=== PATIENT | male | born 1980 | race Caucasian/White ===

== ENCOUNTER → 2017-06-27 15:47 | Outpatient (CLI) | payer OTHER, SELFPAY ==
[2017-06-27 16:34] LABS: AST(SGOT) 19 U/L (15-37); Alanine Aminotransfer ALT/SGPT 28 U/L (16-61); Alkaline Phosphatase 74 U/L (45-117); Bilirubin, Direct 0.14 mg/dL (0.00-0.30); Cholesterol 181 mg/dL (200); Globulin 3.6 g/dL (2.2-4.2); High Density Lipoprotein 47 mg/dL; Protein, Total 7.6 g/dL (6.4-8.2); Triglycerides 195 mg/dL; Very Low Density Lipoprotein 39 mg/dL (5-40)
== END ==
PROVIDERS: Visit Provider Internal Medicine Cardiovascular Disease
DX: R07.9 Chest pain, unspecified (principal)
CPT/HCPCS: 36415; 80061; 80076

== ENCOUNTER 2021-07-07 06:52 | Inpatient (IN) | payer OTHER, SELFPAY ==
[2021-07-07] VITALS (13 sets, daily range): BP systolic 106–157; BP diastolic 61–89; PULSE 62–98; RESP 15–22; TEMP 37.1–39.4; O2SAT 94–97; BMI 25.4; BMI 25.3
--- NOTE | 2021-07-07 07:03 | EKG12_ITS ---
Test Reason : CELLULITIS Blood Pressure : / mmHG Vent. Rate : 086 BPM Atrial Rate : 086 BPM P-R Int : 134 ms QRS Dur : 090 ms QT Int : 332 ms P-R-T Axes : 056 073 058 degrees QTc Int : 397 ms Normal sinus rhythm Normal ECG Confirmed by GLO CHAVEZ, JOSE ([id number]), video editor JACQUELYN MÉNDEZ ([id number]) on 07/10/2021 1:10:08 PM Referred By: Confirmed By:JOSE CODY MD
--- NOTE | 2021-07-07 07:03 | CT_ITS ---
STUDY: CT ABDOMEN AND PELVIS WITH CONTRAST REASON FOR EXAM: Male, 40 years old. abdominal wall infection RADIATION DOSAGE (If Supplied By Facility): CTDIvol = ( 10.90 ) mGy, DLP = ( 633.11 ) mGycm TECHNIQUE: Transaxial images were obtained from the dome of the diaphragm to the symphysis pubis without oral contrast. 80 CC ISOVUE 300 was administered. Sagittal and coronal images were reconstructed. Individualized dose optimization techniques were used for this CT. COMPARISON: None. FINDINGS: The visualized lung bases demonstrate mild fibrosis in the posterior basilar segment of the right lower lobe. At its inferior aspect there is a nodular focus 0.6 cm transverse dimension. Mild fibrosis posterior basilar segment left lower lobe. The visualized portions of the heart are within normal limits. Normal liver. Normal gallbladder and extrahepatic biliary system. Normal spleen. Normal pancreas. Normal bilateral adrenal glands. Normal right kidney. Normal left kidney. Normal visualized stomach. Normal small intestine. Moderate stool throughout the colon consistent with fecal stasis. The appendix is visualized and appears normal. Normal abdominal aorta. Normal inferior vena cava. Normal retroperitoneum. Normal urinary bladder. There is an umbilical hernia measuring 1 cm transverse by 1 cm AP. Extending inferiorly to the right of the umbilicus there is a moderate degree of skin thickening and subcutaneous edema consistent with abdominal wall infection. There is no evidence of discrete abscess or fluid collection within the anterior abdominal wall. Normal osseous structures. CT/Abdomen/Pelvis W IV Cont ONLY IMPRESSION: Skin thickening and subcutaneous edema right lower anterior abdominal wall consistent with abdominal wall infection. There is no evidence of discrete abscess or fluid collection. Mild bibasilar fibrosis with nodular focus inferiorly on the right 0.6 cm transverse. Fecal stasis. Electronically Signed: Shawn Merlos MD, ASHLEE at 8:16 EDT ,
--- NOTE | 2021-07-07 07:06 | EX.ED.DYSGE1 ---
HPI History of Present Illness Chief Complaint: Cellulitis Informant: patient and spouse/S.O. Narrative Narrative: 40-year-old male presenting to the emergency department with cellulitis of the abdomen. Patient states that the day after returning home from a trip to [place] he noticed a small area of redness on his lower right abdominal wall. Thinking he may have had a bite he did not think much about it until it started to worsen and become painful. He notes that on he went to [facility] urgent [facility] and was started on Keflex 500 mg twice daily and was also given a steroid shot. It continues to worsen and be increasingly painful and is now swollen. He denies any significant medical problems. He has not had a fever until today. [facility] Medical History (Updated 07/07/21 @ 08:[address] Kranthi Wood DO) Arthralgia Arthritis History of petechial rash Thrombocytopenia URI (upper respiratory infection) Home Medications cephalexin 500 mg BID 07/07/21 [History Last Taken Unknown] Allergy/AdvReac Type Severity Reaction Status Date / Time oxycodone [From OxyContin] AdvReac unknown Verified 06/27/17 14:57 Family History Father Myocardial infarction Uncle Myocardial infarction Grandfather CAD (coronary artery disease) CABG, valve surgery Grandmother CAD (coronary artery disease) valve replacement Diabetes Surgical History Hx of fall Social History Smoking Status: Never smoker alcohol intake: current alcohol intake frequency: a few times a week Alcohol type: beer substance use type: does not use ROS ROS ED Constitutional Constitutional ED: Reports chills and fever(s); Denies weight loss Eyes Eyes: Denies change in vision or diplopia ENT ENT ED: Denies ear pain, rhinorrhea or sore throat Cardiovascular Cardiovascular: Denies chest pain, orthopnea, palpitations or racing heartbeat Respiratory/Chest Respiratory/Chest: Denies cough, dyspnea or orthopnea Gastrointestinal Gastrointestinal: Reports abdominal pain; Denies diarrhea, nausea or vomiting Genitourinary Genitourinary ED: Denies dysuria, hematuria or urinary frequency Musculoskeletal Musculoskeletal: Denies arthralgias or myalgias Integumentary Reports rash; Denies abscess Neurologic Neurologic: Denies headache(s) or weakness Psychiatric Psychiatric: Denies anxiety, depression, suicidal ideation or suicidal thoughts Endocrine Endocrinology: Denies polydipsia, polyphagia or polyuria Allergic/Immunologic Allergic/Immunologic ED: Denies mouth swelling, tongue swelling or urticaria EXAM Physical Exam Const Vital Signs: 07/07/21 06:53 07/07/21 06:56 07/07/21 07:26 Temperature 100.7 F H 100.7 F H 101 F H Temperature Source Temporal Temporal Oral Pulse Rate 62 62 Respiratory Rate 15 19 H Blood Pressure 157/89 H 157/86 H Blood Pressure Mean 111 109 Pulse Ox 97 94 Oxygen Delivery Method Room Air Room Air 07/07/21 07:29 07/07/21 08:17 Temperature 99.7 F H Temperature Source Oral Pulse Rate 87 79 Respiratory Rate 22 H 19 H Blood Pressure 125/79 H 128/78 H Blood Pressure Mean 94 94 Pulse Ox 95 97 Oxygen Delivery Method Room Air Room Air Positive well nourished and well developed General Appearance ED: well developed HEENT Reports normocephalic, head/scalp atraumatic, TM's clear and moist mucous membranes Negative for trauma Tympanic Membrane ED: Yes TM's clear Eyes PERRL and EOMs intact bilaterally Neck no lymphadenopathy, supple and no JVD Resp normal respiratory effort and clear to auscultation bilaterally Cardio regular rate, regular rhythm and no murmurs GI non-tender GI Narrative: Please see skin exam Auscultation: normoactive bowel sounds Palpation: soft Back/Spine no CVA tenderness and normal ROM Extremity normal to inspection General Extremety ED: Negative for edema General Extremity: Negative for edema Neuro oriented x3 and CN's II-XII intact bilaterally Sensorium / Orientation: alert Motor Exam: strength 5/5 throughout Psych mental status grossly normal Mood & Affect: Negative for depressed or tearful Skin no wounds Skin Narrative: On the right lower abdominal wall is a 25 cm x 8 cm elliptical area of swelling and erythema. Tender to palpation. MDM MDM MDM Narrative Medical decision making narrative: Oral temperature taken by this physician is 101. Basic blood work is reassuring white count 10.1 lactic acid is normal at 0.8. Blood cultures were obtained and the patient received Zosyn and vancomycin. CT of the abdomen pelvis does not demonstrate any drainable abscess or intra-abdominal pathology. It is consistent with cellulitis. Lab Data Attestation: I reviewed the patient's lab results. Labs: Laboratory Results - last 24 hr 07/07/21 07/07/21 07/07/21 07:00 07:00 07:00 WBC 10.1 RBC 5.08 Hgb 15.6 Hct 45.5 MCV 89.6 MCH 30.7 MCHC 34.3 RDW Std Deviation 42.4 RDW Coeff of Viv 12.9 Plt Count 149 L MPV 11.8 Immature Gran % (Auto) 0.700 Neut % (Auto) 77.7 H Lymph % (Auto) 10.3 L [place] % (Auto) 10.7 H Eos % (Auto) 0.4 Baso % (Auto) 0.2 Absolute Neuts (auto) 7.8 H Absolute Lymphs (auto) 1.04 Nucleated RBC % 0 PT 13.5 INR 1.1 APTT 28.9 Sodium 137 Potassium 3.7 Chloride 105 Carbon Dioxide 27.0 Anion Gap 5 BUN 22 H Creatinine 1.39 H Estim Creat Clear Calc 82.96 Est GFR (MDRD) Af Amer 73 Est GFR (MDRD) Non-Af 60 BUN/Creatinine Ratio 15.8 Glucose 99 Lactic Acid Calcium 8.8 Total Bilirubin 0.50 AST 34 ALT 66 H Alkaline Phosphatase 73 Total Protein 7.4 Albumin 3.8 Globulin 3.6 Albumin/Globulin Ratio 1.1 07/07/21 07:00 WBC RBC Hgb Hct MCV MCH MCHC RDW Std Deviation RDW Coeff of Viv Plt Count MPV Immature Gran % (Auto) Neut % (Auto) Lymph % (Auto) [place] % (Auto) Eos % (Auto) Baso % (Auto) Absolute Neuts (auto) Absolute Lymphs (auto) Nucleated RBC % PT INR APTT Sodium Potassium Chloride Carbon Dioxide Anion Gap BUN Creatinine Estim Creat Clear Calc Est GFR (MDRD) Af Amer Est GFR (MDRD) Non-Af BUN/Creatinine Ratio Glucose Lactic Acid 0.8 Calcium Total Bilirubin AST ALT Alkaline Phosphatase Total Protein Albumin Globulin Albumin/Globulin Ratio Radiography Diagnostic Testing: Clinical Impression(s) from Imaging Studies Abdomen/Pelvis CT 07/07/21 07:03 IMPRESSION: Skin thickening and subcutaneous edema right lower anterior abdominal wall consistent with abdominal wall infection. There is no evidence of discrete abscess or fluid collection. Mild bibasilar fibrosis with nodular focus inferiorly on the right 0.6 cm transverse. Fecal stasis. Electronically Signed: Shawn Merlos MD, ASHLEE at 8:16 EDT , EKG Initial EKG: Attestation: I personally reviewed and interpreted this EKG as follows: Comments: Normal sinus rhythm with a ventricular rate of 86 bpm Discharge Plan Dx/Rx/DC Orders Clinical Impression: Abdominal wall cellulitis, Sepsis, Thrombocytopenia Disposition Disposition: Acute Care Hospital [facility]
--- NOTE | 2021-07-07 07:12 | NURSING ---
NO OLD EKGS
[2021-07-07] MEDS: 0.9% Normal Saline 1,000 ML 999 ML IV (07:22)
[2021-07-07 07:23] LABS: Absolute Lymphocyte Count 1.04 X10^3/uL (0.83-4.51); Absolute Neutrophil Count 7.8 X10^3/uL (2.0-7.7); Basophil# 0.02 X10^3/uL; Basophil% 0.2 % (0-1); Eosinophil# 0.04 X10^3/uL; Eosinophils% 0.4 % (0-5); Hematocrit 45.5 % (40-54); Hemoglobin 15.6 g/dL (13.0-16.5); Lymphocyte # 1.04 X10^3/ul (0.83-4.51); Lymphocyte % 10.3 % (19-41); Mean Corp Hgb Conc 34.3 g/dL (32-36); Mean Corpuscular Hgb 30.7 pg (27.0-32.0); Mean Corpuscular Volume 89.6 fL (80-94); Mean Platelet Vol. 11.8 fl (6.2-12.0); Monocyte# 1.08 X10^3/uL; Monocyte% 10.7 % (0-10); NRBC Flagged by Analyzer 0 % (0-5); Neutrophil # 7.82 X10^3/uL (2.7-7.7); Neutrophil % 77.7 % (47-70); Platelet Count 149 K/mm3 (150-450); RBC Distribution Width CV 12.9 % (11.6-14.6); RBC Distribution Width SD 42.4 fl (35.1-43.9); Red Blood Count 5.08 M/mm3 (4.6-6.2); White Blood Count 10.1 K/mm3 (4.4-11.0)
[2021-07-07] MEDS: Acetaminophen 500 MG Tablet 1000 MG PO ×2 (07:23→14:20)
[2021-07-07] MEDS: Ondansetron 4 MG/2 ML Vial IV (07:23)
[2021-07-07] MEDS: Morphine 4 MG/ML Syringe IV (07:24)
[2021-07-07 07:36] LABS: ALB/GLOB Ratio 1.1 RATIO (0.9-2.4); AST(SGOT) 34 U/L (15-37); Alanine Aminotransfer ALT/SGPT 66 U/L (16-61); Albumin, Serum 3.8 g/dL (3.2-5.0); Alkaline Phosphatase 73 U/L (45-117); Anion Gap 5 (5-15); BUN 22 mg/dL (7-18); BUN/Creat Ratio 15.8 RATIO (10-20); Calcium,Total 8.8 mg/dL (8.5-10.1); Chloride 105 mmol/L (98-107); Creatinine, Serum 1.39 mg/dL (0.70-1.30); EST Glomerular Filtration Rate 60 mL/min (>60); Est Glom Filt Rate - Afr Amer 73 mL/min (>60); Estimated Creatinine Clearance 82.96 ml/min; Globulin 3.6 g/dL (2.2-4.2); Glucose 99 mg/dL (74-106); Potassium 3.7 mmol/L (3.5-5.1); Protein, Total 7.4 g/dL (6.4-8.2); Sodium Level 137 mmol/L (136-145)
[2021-07-07 07:45] LABS: Lactic Acid 0.8 mmol/L (0.4-1.9)
[2021-07-07 07:54] LABS: International Normalized Ratio 1.1; Prothrombin Time (Protime)PT. 13.5 SECONDS (11.7-14.9)
[2021-07-07 07:55] LABS: Partial Thromboplast Time 28.9 Seconds (24.1-36.2)
--- NOTE | 2021-07-07 07:58 | ED.RN ---
abx infusion was paused while pt was in CT due to CT with iv contrast. pt is back in room, abx and iv fluids infusing.
--- NOTE | 2021-07-07 08:41 | HP.PCM.HOS_ITS ---
HPI - General General Date of Admission: 07/07/21 Date of Service: 07/07/21 Chief Complaint: Abdominal wall redness- 6 days HPI Narrative PENELOPE JOHNSON, is a 40 M who presents above. Patient noted some rash over his anterior abdominal wall 6 days ago. He denied any insect bites or any cuts. He had gone fishing 3 days prior. He denied going into the water. He denied any fever or chills. He was seen in the urgent care, 3 days ago and started on Keflex. He was told to come to the emergency room and the redness/rash got worse. The redness is worse and he decided to come to the emergency room. His vitals in the ED showed blood pressure 112/61, heart rate 69, respiratory 22, temperature with 99.2F. He was 100.7 earlier on. CBCD was unremarkable except for platelet of 149, neutrophilia, BUN is 22, creatinine is 1.39. CT of the abdomen and pelvis shows skin thickening and subcutaneous edema of the right lower anterior abdominal wall. No discrete abscess or fluid collection. [facility] Medical History Arthralgia Arthritis History of petechial rash Thrombocytopenia URI (upper respiratory infection) Home Medications cephalexin 500 mg BID 07/07/21 [History Last Taken Unknown] Allergy/AdvReac Type Severity Reaction Status Date / Time oxycodone [From OxyContin] AdvReac unknown Verified 06/27/17 14:57 Family History Father Myocardial infarction Uncle Myocardial infarction Grandfather CAD (coronary artery disease) CABG, valve surgery Grandmother CAD (coronary artery disease) valve replacement Diabetes Surgical History (Updated 07/07/21 @ 09:[address] Keke Davis MD) History of arthroplasty of left shoulder Hx of fall Social History Smoking Status: Never smoker alcohol intake: current alcohol intake frequency: a few times a week Alcohol type: beer substance use type: does not use ROS ROS Narrative Constitutional: Reports: Malaise, Weakness, Fatigue. Denies: Anorexia, Chills, Fever, Night Sweats, Weight Change Eyes: Denies: Blurred vision, Cataracts, Conjunctivae Inflammation, Pain, Redness, Vision Change HEENT: Denies: Difficulty Hearing, Difficulty Swallowing, Head Aches, Hearing Changes, Sinus Congestion, Sinus Drainage Cardiovascular: Denies: Chest Pain, Orthopnea, Palpitations Respiratory: Denies: Cough, Shortness of breath at rest, Sputum production Gastrointestinal: Denies: Abdominal Pain, Nausea, Vomiting Genitourinary: Denies: Dysuria Musculoskeletal: Denies: Joint Pain, Joint stiffness, Joint swelling, Joint Tenderness Skin: See HPI Neurological: Denies: Numbness, Tingling, Focal weakness Vital Signs Vital Signs Vital Signs: 07/07/21 06:53 07/07/21 06:56 07/07/21 07:26 Temperature 100.7 F H 100.7 F H 101 F H Temperature Source Temporal Temporal Oral Pulse Rate 62 62 Respiratory Rate 15 19 H Blood Pressure 157/89 H 157/86 H Blood Pressure Mean 111 109 Pulse Ox 97 94 Oxygen Delivery Method Room Air Room Air 07/07/21 07:29 07/07/21 08:17 Temperature 99.7 F H Temperature Source Oral Pulse Rate 87 79 Respiratory Rate 22 H 19 H Blood Pressure 125/79 H 128/78 H Blood Pressure Mean 94 94 Pulse Ox 95 97 Oxygen Delivery Method Room Air Room Air Weight Weight: 89.9 kg Body Mass Index (BMI) 25.4 Physical Exam Narrative Physical exam: General: Alert, Oriented x3, Cooperative, No apparent distress HEENT: Atraumatic Oral: Moist Mucosa Neck: Supple Lungs: Clear to auscultation Cardiovascular: HS I+II, regular, no murmurs Abdomen: Lower anterior abdominal wall erythema with differential warmth and skin thickening, seem more on the right and lower aspect of the anterior abdominal wall, bowel Sounds Present, Soft, Non Tender Extremities: No edema Skin: No rashes, No breakdown Neurological: Grossly intact Psych/Mental Status: Appropriate Results Lab / Micro Data Result Diagrams: 07/07/21 07:00 07/07/21 07:00 Labs: Laboratory Results - last 24 hr 07/07/21 07:00: WBC 10.1, RBC 5.08, Hgb 15.6, Hct 45.5, MCV 89.6, MCH 30.7, MCHC 34.3, RDW Std Deviation 42.4, RDW Coeff of Viv 12.9, Plt Count 149 L, MPV 11.8, Immature Gran % (Auto) 0.700, Neut % (Auto) 77.7 H, Lymph % (Auto) 10.3 L, [place] % (Auto) 10.7 H, Eos % (Auto) 0.4, Baso % (Auto) 0.2, Absolute Neuts (auto) 7.8 H, Absolute Lymphs (auto) 1.04, Nucleated RBC % 0 07/07/21 07:00: PT 13.5, INR 1.1, APTT 28.9 07/07/21 07:00: Sodium 137, Potassium 3.7, Chloride 105, Carbon Dioxide 27.0, Anion Gap 5, BUN 22 H, Creatinine 1.39 H, Estim Creat Clear Calc 82.96, Est GFR (MDRD) Af Amer 73, Est GFR (MDRD) Non-Af 60, BUN/Creatinine Ratio 15.8, Glucose 99, Calcium 8.8, Total Bilirubin 0.50, AST 34, ALT 66 H, Alkaline Phosphatase 73 , Total Protein 7.4, Albumin 3.8, Globulin 3.6, Albumin/Globulin Ratio 1.1 07/07/21 07:00: Lactic Acid 0.8 Radiology Impression Abdomen/Pelvis CT 07/07/21 07:03 IMPRESSION: Skin thickening and subcutaneous edema right lower anterior abdominal wall consistent with abdominal wall infection. There is no evidence of discrete abscess or fluid collection. Mild bibasilar fibrosis with nodular focus inferiorly on the right 0.6 cm transverse. Fecal stasis. Electronically Signed: Shawn Merlos MD, ASHLEE at 8:16 EDT Reading Location ID and State: [facility] / [place] Tel , Service support , Assessment & Plan Assessment/Plan (1) Abdominal wall cellulitis: (2) History of arthroplasty of left shoulder: PLAN: 1. Acute abdominal wall cellulitis, unclear etiology Patient was started on Keflex a few days ago Started on IV vancomycin and Zosyn; continue same Continue to monitor 2. Chronic thrombocytopenia, platelet is 149, Continue to monitor 3. LRARY versus CKD, unknown previous Cr/GFR We will continue IV fluids, repeat blood work in a.m. 4. DVT prophylaxis?low risk, SCDs Charges/Coding Visit Charges Inpatient E&M: 61293 Init Hosp L3
--- NOTE | 2021-07-07 08:41 | NURSING ---
MED SURG NUAMAH CELLULITIS, SEPSIS
--- NOTE | 2021-07-07 09:08 | NURSING ---
ROOM [facility]
[2021-07-07] MEDS: 0.9% Normal Saline 1,000 ML 100 ML IV ×2 (10:53→21:16)
--- NOTE | 2021-07-07 11:00 | CASEMGMT ---
GEORGIE [place] Assessment: Face to Face with pt for initial transition planning/care coordination assessment. RN FELIX introduced self and role at [facility], pt voices understanding and consents to assessment. Pt is A/O x4 and answers all questions appropriately at this time. Pt lying in bedin no distress. Care providers, pharmacy, and demographics verified/updated. Admitting Dx: cellulitis PCP:Pt denies. Provided pt with local healthcare directory. Specialists:Pt denies. Preferred Pharmacy: [facility] Retail Insurance: UMR Prescription Benefit: yes LW/HPOA: Pt denies having a LW/DPOA and denies need for info regarding AD. LNOK: Ale Olmos, Living Arrangements: Pt lives with and 3 kids in a bilevel home with multiple steps to enter with rails. Pt states he is I in ADL's and denies concerns at home. Transportation: Pt drives self and denies concerns with transportation. DME/HHC/SNF: Pt denies use of AD or having any. Denies previous HHC or SNF stays. Pt states no concerns with going home at time of dc. Pt states no further concerns/needs. CM to follow. Advised pt to ask CM if any further question/concerns/needs arise, voices understanding. Pt Goal: Home Plan: Home
[2021-07-07 16:00] LABS: Bacteria 0 SEEN /hpf (None Seen); Mucous, Urine 0 SEEN /hpf (<or=2+); Squamous Epithelial Cells - UA 0 SEEN /hpf (0-5)
[2021-07-07 16:07] LABS: Color, Urine Yellow (Yellow); Glucose, Dipstick Normal (Normal); Ketone-Dipstick Negative (Negative); Leukocyte Esterase-Dipstick 25 /ul (Negative); Nitrite-Dipstick Negative (Negative); Occult Blood-Urine 250 /ul (Negative); Protein-Dipstick 100 mg/dl (Negative); Specific Gravity, Urine 1.015 (1.002-1.030); Urine Bilirubin Dipstick Negative (Negative); Urine Clarity Cloudy (Clear); Urine Urobilinogen 1 mg/dl (Normal)
[2021-07-07 16:16] LABS: Red Blood Cells-Urine 10-25 SEEN /hpf (0-5); White Blood Cells 50-100 SEEN /hpf (0-5)
--- NOTE | 2021-07-07 18:41 | PCM.RX.CS ---
Consult Pharmacy has been consulted to manage selected antiobiotic: Vancomycin Type of Consult: New start Suspected Infection: Skin/Soft tissue Labs: Sodium 137 mmol/L (136-145) 07/07/21 07:00 Potassium 3.7 mmol/L (3.5-5.1) 07/07/21 07:00 Chloride 105 mmol/L (98-107) 07/07/21 07:00 Carbon Dioxide 27.0 mmol/L (21.0-32.0) 07/07/21 07:00 Anion Gap 5 (5-15) 07/07/21 07:00 BUN 22 mg/dL (7-18) H 07/07/21 07:00 Creatinine 1.39 mg/dL (0.70-1.30) H 07/07/21 07:00 Est GFR (MDRD) Af Amer 73 mL/min (>60) 07/07/21 07:00 Est GFR (MDRD) Non-Af 60 mL/min (>60) 07/07/21 07:00 BUN/Creatinine Ratio 15.8 RATIO (10-20) 07/07/21 07:00 Glucose 99 mg/dL (74-106) 07/07/21 07:00 Goal Trough: 15-20 mcg/mL Pharmacy Plan for Drug Dosing: NEW START IV VANCOMYCIN Consulting Physician: Dr. Davis Indication: Abdominal Cellulitis Goal Trough: 15-20 SrCr: 1.39 CrCl: 83 Comments: pt received a 2000mg x1 dose in the ER on 07/07/21 at 0834 Vancomcyin Dose: based on pts age, weight, and renal function, recommend an initial dose of 750mg q8h starting 07/07/21 at 1700. Trough before the 4th dose. --Note: Dose was calculated using Clinical Pharmacology. Estimated trough of 15.78 Pending Level: 07/08/21 at 0830 Pharmacy Service will continue to monitor and adjust dosing as required. Follow-Up Labs: Trough Vancomycin - 07/08/21 at 0830
[2021-07-07] MEDS: Ibuprofen 600 MG Tablet PO (19:59)
[2021-07-08 02:30] VITALS: BP 123/76; PULSE 59; RESP 18; TEMP 36.8; O2SAT 97
[2021-07-08 06:20] LABS: Absolute Lymphocyte Count 1.25 X10^3/uL (0.83-4.51); Absolute Neutrophil Count 6.4 X10^3/uL (2.0-7.7); Basophil# 0.03 X10^3/uL; Basophil% 0.3 % (0-1); Eosinophil# 0.03 X10^3/uL; Eosinophils% 0.3 % (0-5); Hematocrit 39.3 % (40-54); Hemoglobin 12.9 g/dL (13.0-16.5); Lymphocyte # 1.25 X10^3/ul (0.83-4.51); Lymphocyte % 14.2 % (19-41); Mean Corp Hgb Conc 32.8 g/dL (32-36); Mean Corpuscular Hgb 29.8 pg (27.0-32.0); Mean Corpuscular Volume 90.8 fL (80-94); Mean Platelet Vol. 12.2 fl (6.2-12.0); Monocyte# 1.07 X10^3/uL; Monocyte% 12.1 % (0-10); NRBC Flagged by Analyzer 0 % (0-5); Neutrophil # 6.37 X10^3/uL (2.7-7.7); Neutrophil % 72.3 % (47-70); Platelet Count 119 K/mm3 (150-450); RBC Distribution Width SD 43.5 fl (35.1-43.9); Red Blood Count 4.33 M/mm3 (4.6-6.2); White Blood Count 8.8 K/mm3 (4.4-11.0)
[2021-07-08 06:54] LABS: ALB/GLOB Ratio 0.8 RATIO (0.9-2.4); AST(SGOT) 42 U/L (15-37); Alanine Aminotransfer ALT/SGPT 77 U/L (16-61); Albumin, Serum 2.7 g/dL (3.2-5.0); Alkaline Phosphatase 64 U/L (45-117); Anion Gap 5 (5-15); BUN 16 mg/dL (7-18); BUN/Creat Ratio 12.2 RATIO (10-20); Calcium,Total 7.9 mg/dL (8.5-10.1); Chloride 108 mmol/L (98-107); Creatinine, Serum 1.31 mg/dL (0.70-1.30); EST Glomerular Filtration Rate 65 mL/min (>60); Est Glom Filt Rate - Afr Amer 78 mL/min (>60); Estimated Creatinine Clearance 88.02 ml/min; Globulin 3.4 g/dL (2.2-4.2); Glucose 96 mg/dL (74-106); Potassium 3.6 mmol/L (3.5-5.1); Protein, Total 6.1 g/dL (6.4-8.2); Sodium Level 138 mmol/L (136-145)
--- NOTE | 2021-07-08 07:13 | PN.HOSP_ITS ---
Subjective Subjective Follow-up on abdominal wall cellulitis: Patient was seen and examined. He has been having fevers overnight; T-max is 102.9F. He stated that he feels fairly improved. No acute events overnight. Denies any diarrhea or nausea or vomiting. Blood cultures are still pending Objective Data Objective Data Vital Signs: Vital Signs Temp Pulse Resp BP Pulse Ox 98.2 F 59 L 18 123/76 H 97 07/08/21 02:30 07/08/21 02:30 07/08/21 02:30 07/08/21 02:30 07/08/21 02:30 Oxygen Delivery Method Room Air Weight: 89.5 kg Body Mass Index (BMI) 25.3 Intake & Output: Intake and Output for Last 24 Hours 07/06/21 07/07/21 07/08/21 23:59 23:59 23:59 Intake Total 3818.25 / 4618.25 1688.33 / 1688.33 Output Total 600 / 1000 1200 / 1200 Balance 3218.25 / 3618.25 488.33 / 488.33 Lab / Micro Data Result Diagrams: 07/08/21 05:14 07/08/21 05:14 Labs: Laboratory Results - last 24 hr 07/07/21 07:00: WBC 10.1, RBC 5.08, Hgb 15.6, Hct 45.5, MCV 89.6, MCH 30.7, MCHC 34.3, RDW Std Deviation 42.4, RDW Coeff of Viv 12.9, Plt Count 149 L, MPV 11.8, Immature Gran % (Auto) 0.700, Neut % (Auto) 77.7 H, Lymph % (Auto) 10.3 L, [place] % (Auto) 10.7 H, Eos % (Auto) 0.4, Baso % (Auto) 0.2, Absolute Neuts (auto) 7.8 H, Absolute Lymphs (auto) 1.04, Nucleated RBC % 0 07/07/21 07:00: PT 13.5, INR 1.1, APTT 28.9 07/07/21 07:00: Sodium 137, Potassium 3.7, Chloride 105, Carbon Dioxide 27.0, Anion Gap 5, BUN 22 H, Creatinine 1.39 H, Estim Creat Clear Calc 82.96, Est GFR (MDRD) Af Amer 73, Est GFR (MDRD) Non-Af 60, BUN/Creatinine Ratio 15.8, Glucose 99, Calcium 8.8, Total Bilirubin 0.50, AST 34, ALT 66 H, Alkaline Phosphatase 73, Total Protein 7.4, Albumin 3.8, Globulin 3.6, Albumin/Globulin Ratio 1.1 07/07/21 07:00: Lactic Acid 0.8 07/07/21 15:40: Urine Color Yellow, Urine Clarity Cloudy, Urine pH 6.0, Ur Specific [place] 1.015, Urine Protein 100 H, Urine Glucose (UA) Normal, Urine Ketones Negative, Urine Occult Blood 250 H, Urine Nitrite Negative, Urine Bilirubin Negative, Urine Urobilinogen 1 H, Ur Leukocyte Esterase 25 H, Urine RBC 10-25 SEEN, Urine WBC 50-100 SEEN, Ur Squamous Epith Cells 0 SEEN, Urine Bacteria 0 SEEN, Urine Mucus 0 SEEN 07/08/21 05:14: WBC 8.8, RBC 4.33 L, Hgb 12.9 L, Hct 39.3 L, MCV 90.8, MCH 29.8, MCHC 32.8, RDW Std Deviation 43.5, RDW Coeff of Viv 13.0, Plt Count 119 L, MPV 12.2 H, Immature Gran % (Auto) 0.800, Neut % (Auto) 72.3 H, Lymph % (Auto) 14.2 L, [place] % (Auto) 12.1 H, Eos % (Auto) 0.3, Baso % (Auto) 0.3, Absolute Neuts (au to) 6.4, Absolute Lymphs (auto) 1.25, Nucleated RBC % 0 07/08/21 05:14: Sodium 138, Potassium 3.6, Chloride 108 H, Carbon Dioxide 25.0, Anion Gap 5, BUN 16, Creatinine 1.31 H, Estim Creat Clear Calc 88.02, Est GFR (MDRD) Af Amer 78, Est GFR (MDRD) Non-Af 65, BUN/Creatinine Ratio 12.2, Glucose 96, Calcium 7.9 L, Total Bilirubin 0.70, AST 42 H, ALT 77 H, Alkaline Phosphatase 64, Total Protein 6.1 L, Albumin 2.7 L, Globulin 3.4, Albumin/Globulin Ratio 0.8 L Radiography Diagnostic Testing: Radiology Impression Abdomen/Pelvis CT 07/07/21 07:03 IMPRESSION: Skin thickening and subcutaneous edema right lower anterior abdominal wall consistent with abdominal wall infection. There is no evidence of discrete abscess or fluid collection. Mild bibasilar fibrosis with nodular focus inferiorly on the right 0.6 cm transverse. Fecal stasis. Electronically Signed: Shawn Merlos MD, ASHLEE at 8:16 EDT Reading Location ID and State: [facility] / [place] Tel , Service support , Physical Exam Narrative Physical exam: General: Alert, Oriented x3, Cooperative, No apparent distress HEENT: Atraumatic Oral: Moist Mucosa Neck: Supple Lungs: Clear to auscultation Cardiovascular: HS I+II, regular, no murmurs Abdomen: Lower anterior/RLQ abdominal wall erythema with differential warmth and skin thickening, very slightly improved, induration improved, bowel Sounds Present, Soft, Non Tender Extremities: No edema Skin: No rashes, No breakdown Neurological: Grossly intact Psych/Mental Status: Appropriate Assessment & Plan Assessment/Plan (1) Abdominal wall cellulitis: (2) History of arthroplasty of left shoulder: PLAN: 1. Acute abdominal wall cellulitis, unclear etiology Status post outpatient Keflex; presented with worsening erythema and induration Patient spiking fevers, no leukocytosis, blood cultures are pending Continue on IV vancomycin and Zosyn 2. Chronic thrombocytopenia, platelet is 119 from 149 Not on heparin or anticoagulation, likely antibiotics related Continue to monitor 3. LARRY versus CKD, unknown previous Cr/GFR Creatinine currently 1.31 up from 1.39 We will continue to monitor with repeat labs, IV fluids 4. Asymptomatic bacteriuria, will monitor 5. DVT prophylaxis?low risk, SCDs Charges/Coding Visit Charges Inpatient E&M: 45681 Subs Hosp L2
[2021-07-08 08:26] VITALS: BP 131/72; PULSE 70; RESP 18; TEMP 37.2; O2SAT 95
[2021-07-08 09:10] LABS: Vancomycin, Trough Level 12.5 ug/mL (5.0-15.0)
--- NOTE | 2021-07-08 09:34 | PCM.RX.CS ---
Consult Pharmacy has been consulted to manage selected antiobiotic: Vancomycin Type of Consult: Follow-up Suspected Infection: Skin/Soft tissue Labs: Sodium 138 mmol/L (136-145) 07/08/21 05:14 Potassium 3.6 mmol/L (3.5-5.1) 07/08/21 05:14 Chloride 108 mmol/L (98-107) H 07/08/21 05:14 Carbon Dioxide 25.0 mmol/L (21.0-32.0) 07/08/21 05:14 Anion Gap 5 (5-15) 07/08/21 05:14 BUN 16 mg/dL (7-18) 07/08/21 05:14 Creatinine 1.31 mg/dL (0.70-1.30) H 07/08/21 05:14 Est GFR (MDRD) Af Amer 78 mL/min (>60) 07/08/21 05:14 Est GFR (MDRD) Non-Af 65 mL/min (>60) 07/08/21 05:14 BUN/Creatinine Ratio 12.2 RATIO (10-20) 07/08/21 05:14 Glucose 96 mg/dL (74-106) 07/08/21 05:14 Vancomycin Trough 12.5 ug/mL (5.0-15.0) 07/08/21 08:28 Goal Trough: 15-20 mcg/mL Pharmacy Plan for Drug Dosing: VANCOMYCIN LEVEL RECEIVED Current Vancomycin Dose: 750mg q8h (,,17) Number of Doses Received: x1 loading dose, x2 750mg doses Vancomycin Level: 12.5 Hours Since Last Dose: ~7 hour level Renal Function: SrCr 1.31 Renal Function Trend: stable (SrCr was 1.39) Lab/Micro: Vancomycin Plan/Comments: resulted trough of 12.5 is slightly below ordered goal trough of 15-20. pt may not yet be at steady state. recommend continuing current dose of 750mg q8h and checking a trough in 24 hours Pending Level: 07/09/21 at 0830 Pharmacy Service will continue to monitor and adjust dosing as required. Follow-Up Labs: Trough Vancomycin - 07/09/21 at 0830
[2021-07-08] MEDS: 0.9% Normal Saline 1,000 ML 75 ML IV (12:22)
[2021-07-08 15:58] VITALS: BP 139/94; PULSE 89; RESP 18; TEMP 37.4; O2SAT 95
[2021-07-08 19:41] VITALS: BP 130/75; PULSE 74; RESP 14; TEMP 37.9; O2SAT 100
[2021-07-08] MEDS: Acetaminophen 500 MG Tablet 1000 MG PO (19:47)
[2021-07-09 01:00] VITALS: BP 119/90; PULSE 63; RESP 16; TEMP 36.6; O2SAT 99
[2021-07-09] MEDS: 0.9% Normal Saline 1,000 ML 75 ML IV (01:29)
--- NOTE | 2021-07-09 07:36 | PCM.PN.HOSP ---
Subjective Subjective Follow-up for abdominal wall cellulitis Objective Data Objective Data Vital Signs: Vital Signs Temp Pulse Resp BP Pulse Ox 97.8 F 63 16 119/90 H 99 07/09/21 01:00 07/09/21 01:00 07/09/21 01:00 07/09/21 01:00 07/09/21 01:00 Oxygen Delivery Method Room Air Weight: 197 lb 5.019 oz Body Mass Index (BMI) 25.3 Intake & Output: Intake and Output for Last 24 Hours 07/07/21 07/08/21 07/09/21 23:59 23:59 23:59 Intake Total 3818.25 / 4618.25 3567.58 / 4067.58 1265 / 1265 Output Total 600 / 1000 2800 / 3600 1600 / 1600 Balance 3218.25 / 3618.25 767.58 / 467.58 -335 / -335 Lab / Micro Data Result Diagrams: 07/09/21 08:25 07/09/21 08:25 Labs: Laboratory Results - last 24 hr 07/08/21 08:28: Vancomycin Trough 12.5 Micro: Microbiology 07/07/21 07:15 Blood Culture (Wb) - Anticubital Right Blood Culture - Preliminary No growth in 48 hours. 07/07/21 07:00 Blood Culture (Wb) - Anticubital Left Blood Culture - Preliminary No growth in 48 hours. Physical Exam Narrative Patient is stated he used lu-fish as bait for catching catfish and might have hold it near her abdominal wall. Patient admitted with 6 days of redness and swelling over anterior abdominal wall. T-max 100.2 Fahrenheit yesterday General: Alert, Oriented x3, Cooperative HEENT: Atraumatic, PERRLA, EOMI, Normocephalic Oral: No Gingival or Mucosal Lesions/ Ulcerations Neck: Supple, No JVD, Negative Carotid Bruits Lungs: Air entry diminished in bilateral lung bases. No crepitation/rhonchi Cardiovascular: Regular rate, Regular Rhythm, Normal S1, Normal S2, No murmurs Abdomen: Bowel Sounds Present, Soft, Non Tender, Non-Distended : No renal angle tenderness. No suprapubic tenderness. Extremities: No edema, Capillary Refill Less than 3 Seconds Skin: Erythema, localized edema around anterior abdominal wall. No tenderness. Extent of cellulitis getting better. Musculoskeletal: No Tenderness to Palpation of Joints or Extremities Neurological: Cranial nerves II-XII grossly intact, DTR 2+/4 and Symmetrical, Neuro grossly intact Psych/Mental Status: Normal Affect, Appropriate. Assessment & Plan Assessment/Plan (1) Abdominal wall cellulitis: PLAN: 1. Acute abdominal wall cellulitis, most likely due to fish handling. Status post outpatient Keflex; presented with worsening erythema and induration Patient spiking fevers, no leukocytosis, blood cultures are pending Continue on IV vancomycin and Zosyn. So that is getting better 2. Chronic thrombocytopenia, platelet is 119 from 149 Not on heparin or anticoagulation, likely antibiotics related Continue to monitor 3. LARRY on CKD unclear. Creatinine improved from 1.39-1.23. Continue to monitor creatinine. Discontinue IV fluid 4. Asymptomatic bacteriuria, urine culture ordered although patient does not have burning micturition or new lower urinary tract symptoms 5. DVT prophylaxis?low risk, SCDs Clinical Impression(s) from Imaging Studies Abdomen/Pelvis CT 07/07/21 07:03 IMPRESSION: Skin thickening and subcutaneous edema right lower anterior abdominal wall consistent with abdominal wall infection. There is no evidence of discrete abscess or fluid collection. Mild bibasilar fibrosis with nodular focus inferiorly on the right 0.6 cm transverse. Fecal stasis. Charges/Coding Visit Charges Inpatient E&M: 71842 Subs Hosp L2
[2021-07-09 08:26] VITALS: BP 144/96; PULSE 64; RESP 16; TEMP 36.6; O2SAT 100
[2021-07-09 08:33] LABS: Absolute Lymphocyte Count 1.17 X10^3/uL (0.83-4.51); Absolute Neutrophil Count 4.2 X10^3/uL (2.0-7.7); Basophil# 0.03 X10^3/uL; Basophil% 0.5 % (0-1); Eosinophil# 0.21 X10^3/uL; Eosinophils% 3.2 % (0-5); Hematocrit 42.4 % (40-54); Hemoglobin 14.4 g/dL (13.0-16.5); Lymphocyte # 1.17 X10^3/ul (0.83-4.51); Lymphocyte % 17.8 % (19-41); Mean Corpuscular Hgb 30.4 pg (27.0-32.0); Mean Corpuscular Volume 89.5 fL (80-94); Mean Platelet Vol. 11.1 fl (6.2-12.0); Monocyte# 0.95 X10^3/uL; Monocyte% 14.5 % (0-10); NRBC Flagged by Analyzer 0 % (0-5); Neutrophil # 4.16 X10^3/uL (2.7-7.7); Neutrophil % 63.2 % (47-70); Platelet Count 137 K/mm3 (150-450); RBC Distribution Width CV 12.6 % (11.6-14.6); RBC Distribution Width SD 41.7 fl (35.1-43.9); Red Blood Count 4.74 M/mm3 (4.6-6.2); White Blood Count 6.6 K/mm3 (4.4-11.0)
[2021-07-09 08:48] LABS: ALB/GLOB Ratio 0.8 RATIO (0.9-2.4); AST(SGOT) 35 U/L (15-37); Alanine Aminotransfer ALT/SGPT 81 U/L (16-61); Alkaline Phosphatase 79 U/L (45-117); Anion Gap 4 (5-15); BUN 10 mg/dL (7-18); BUN/Creat Ratio 8.1 RATIO (10-20); Calcium,Total 8.8 mg/dL (8.5-10.1); Chloride 109 mmol/L (98-107); Creatinine, Serum 1.23 mg/dL (0.70-1.30); EST Glomerular Filtration Rate 69 mL/min (>60); Est Glom Filt Rate - Afr Amer 84 mL/min (>60); Estimated Creatinine Clearance 93.75 ml/min; Globulin 3.9 g/dL (2.2-4.2); Glucose 109 mg/dL (74-106); Potassium 4.1 mmol/L (3.5-5.1); Protein, Total 6.9 g/dL (6.4-8.2); Sodium Level 140 mmol/L (136-145)
[2021-07-09 08:52] LABS: Vancomycin, Trough Level 13.5 ug/mL (5.0-15.0)
--- NOTE | 2021-07-09 09:06 | PCM.RX.CS ---
Consult Pharmacy has been consulted to manage selected antiobiotic: Vancomycin Type of Consult: Follow-up Suspected Infection: Skin/Soft tissue Labs: Sodium 140 mmol/L (136-145) 07/09/21 08:25 Potassium 4.1 mmol/L (3.5-5.1) 07/09/21 08:25 Chloride 109 mmol/L (98-107) H 07/09/21 08:25 Carbon Dioxide 27.0 mmol/L (21.0-32.0) 07/09/21 08:25 Anion Gap 4 (5-15) L 07/09/21 08:25 BUN 10 mg/dL (7-18) 07/09/21 08:25 Creatinine 1.23 mg/dL (0.70-1.30) 07/09/21 08:25 Est GFR (MDRD) Af Amer 84 mL/min (>60) 07/09/21 08:25 Est GFR (MDRD) Non-Af 69 mL/min (>60) 07/09/21 08:25 BUN/Creatinine Ratio 8.1 RATIO (10-20) L 07/09/21 08:25 Glucose 109 mg/dL (74-106) H 07/09/21 08:25 Vancomycin Trough 13.5 ug/mL (5.0-15.0) 07/09/21 08:25 Microbiology: Microbiology 07/07/21 07:15 Blood Culture (Wb) - Anticubital Right Blood Culture - Preliminary No growth in 48 hours. 07/07/21 07:00 Blood Culture (Wb) - Anticubital Left Blood Culture - Preliminary No growth in 48 hours. Goal Trough: 15-20 mcg/mL Pharmacy Plan for Drug Dosing: VANCOMYCIN LEVEL RECEIVED Current Vancomycin Dose: 750 MG Q8 Number of Doses Received: 750MG X 5, 2000MG X 1 Vancomycin Level: 13.5 MG/DL Hours Since Last Dose: 7 Renal Function: SCR 1.23, CRCL 94 ML/MIN Renal Function Trend: STABLE Lab/Micro: BC - NG, URINE CX PENDING Vancomycin Plan/Comments: REPEAT TROUGH IS STILL SLIGHTLY SUBTHERAPEUTIC. WILL INCREASE DOSE TO 1000MG Q8 AND GET A TROUGH PRIOR TO 4TH DOSE OF NEW REGIMEN. Pending Level: 07/10/21 @ 0830 Pharmacy Service will continue to monitor and adjust dosing as required.
[2021-07-09] MEDS: Vancomycin IV 1,000 MG/200 ML BAG 200 MG IV ×2 (09:21→17:11)
[2021-07-09 12:45] VITALS: BP 157/95; PULSE 63; RESP 16; TEMP 36.6; O2SAT 99
[2021-07-09 15:58] VITALS: BP 152/101; PULSE 79; RESP 16; TEMP 36.5; O2SAT 95
[2021-07-09] MEDS: 0.9% Saline Lock 10 ML Syringe IV (17:12)
[2021-07-09 19:56] VITALS: BP 153/77; PULSE 69; RESP 16; TEMP 36.5; O2SAT 98
[2021-07-10 03:12] VITALS: BP 128/83; PULSE 61; RESP 16; TEMP 36.5; O2SAT 98
--- NOTE | 2021-07-10 07:31 | PCM.DC ---
Discharge Instructions Diet Discharge Diet: No restrictions Activity Discharge Activity: Return to Normal Activity Weight Bearing Status: Weight bearing as tolerated Dressing / Incision Call your doctor if you observe: Fever of 101 or Higher, Coldness, Increased Pain, Numbness or Tingling, Change in Color, Inability to urinate, Inability to have a bowel movement, Shortness of breath, Dizziness, Fainting spells, Swelling in the ankles, Chest pain, Increased palpitations (irregular heartbeat), Calf discomfort and Uncontrolled pain Follow Up Care Test Results: Test results from this visit will be discussed in further detail at your follow-up appointment, if applicable. Discharge Plan Admission Admit Date/Time: 07/07/21 08:29 Primary Reason for Your Visit: Abdominal wall cellulitis Attending Provider: Jacinto Webb Primary Care Provider: Care Physician,Millie Primary Consulting Providers: Keke Davis Discharge Orders/Prescriptions Prescriptions: New cephalexin 500 mg capsule 500 mg PO TID Qty: 15 RF: 0 sulfamethoxazole-trimethoprim [Bactrim DS] 800-160 mg tablet 1 tab PO BID Qty: 10 RF: 0 Discontinued cephalexin 500 mg capsule 500 mg BID RF: 0 Referrals / Follow Up: Care Physician,No Primary [Primary Care Provider] - Within 2 Weeks Disposition Disposition (needs filled in before D/C Order can be placed): Home, Self Care
[2021-07-10 07:34] VITALS: BP 144/97; PULSE 103; RESP 16; TEMP 36.6; O2SAT 99
[2021-07-10 08:06] VITALS: BP 144/95; PULSE 65; RESP 18; TEMP 36.8; O2SAT 99
[2021-07-10] MEDS: Vancomycin IV 1,000 MG/200 ML BAG 200 MG IV ×2 (08:37)
[2021-07-10 09:13] LABS: Vancomycin, Trough Level 15.5 ug/mL (5.0-15.0)
--- NOTE | 2021-07-10 09:57 | PCM.RX.CS ---
Consult Pharmacy has been consulted to manage selected antiobiotic: Vancomycin Type of Consult: Follow-up Suspected Infection: Skin/Soft tissue Prior Doses of Antibiotics Received/Current Regimen: current dose is vanc 1000mg IV q8h Labs: Sodium 140 mmol/L (136-145) 07/09/21 08:25 Potassium 4.1 mmol/L (3.5-5.1) 07/09/21 08:25 Chloride 109 mmol/L (98-107) H 07/09/21 08:25 Carbon Dioxide 27.0 mmol/L (21.0-32.0) 07/09/21 08:25 Anion Gap 4 (5-15) L 07/09/21 08:25 BUN 10 mg/dL (7-18) 07/09/21 08:25 Creatinine 1.23 mg/dL (0.70-1.30) 07/09/21 08:25 Est GFR (MDRD) Af Amer 84 mL/min (>60) 07/09/21 08:25 Est GFR (MDRD) Non-Af 69 mL/min (>60) 07/09/21 08:25 BUN/Creatinine Ratio 8.1 RATIO (10-20) L 07/09/21 08:25 Glucose 109 mg/dL (74-106) H 07/09/21 08:25 Vancomycin Trough 15.5 ug/mL (5.0-15.0) H 07/10/21 08:30 Microbiology: Microbiology 07/09/21 08:18 Urine, Midstream Urine Culture - Preliminary Culture exhibits no growth. 07/07/21 07:15 Blood Culture (Wb) - Anticubital Right Blood Culture - Preliminary No growth in 48 hours. 07/07/21 07:00 Blood Culture (Wb) - Anticubital Left Blood Culture - Preliminary No growth in 48 hours. Weight used for dosin.5 kg Estimated Creatinine Clearance: 94ml/min Goal Trough: 15-20 mcg/mL Pharmacy Plan for Drug Dosing: The vanc trough drawn at 08:30 today (drawn 8.5 hours after the previous dose) was 15.5. This is within goal of 15-20 and would have been slightly higher if the previous dose had not been given about an hour early. Will keep the patient on the same dose and repeat another trough in 2 days per protocol. Pharmacy Service will continue to monitor and adjust dosing as required. Follow-Up Labs: Trough Vancomycin Labs to be done on [date and time ordered]: 07/12/21 08:30
--- NOTE | 2021-07-10 10:51 | PCM.DC.SUM ---
Providers Date of Admission: 07/07/21 Date of Discharge: 07/10/21 Primary Care Physician: No Primary Care Phys Reason For Visit: CELLULITIS Diagnosis Discharge Diagnosis (1) Abdominal wall cellulitis: Status: Acute Code(s): L03.311 - Cellulitis of abdominal wall Medications at Discharge Home Medications cephalexin 500 mg PO TID #15 cap 07/10/21 sulfamethoxazole-trimethoprim [Bactrim DS] 1 tab PO BID #10 tab 07/10/21 Hospital Course Summary of Care Provided Hospital Course: This 40-year-old question gentleman admitted with right shoulder anterior abdominal wall, pain about 6 days ago while he was fishing. He used lu-fish as bait for catching catfish and might have hold it near her abdominal wall. 1. Acute abdominal wall cellulitis, most likely due to fish handling. Patient took total 3 doses of Keflex 500 mg twice daily before coming to hospital [facility] Patient had T-max 90.2 Fahrenheit on 07/08. After that afebrile. Patient was empirically started on IV vancomycin and Zosyn. Blood cultures x2 negative for more than 48 hours. Cellulitis has gotten much better almost 80%. Patient is discharged on 5 more days of Keflex and Bactrim DS. Patient has about 20 tablets of Keflex left and is sufficient. Prescription for Bactrim DS given. Advised to follow-up PCP in 2 weeks. Patient did not had features of sepsis therefore sepsis ruled out 2. Chronic thrombocytopenia, platelet is 119 from 149 Not on heparin or anticoagulation, likely antibiotics related Continue to monitor 3. CKD stage G1: Creatinine improved from 1.39-1.23. Discontinue IV fluid. Creatinine to baseline. It seems patient has CKD stage G1 4. Asymptomatic bacteriuria,patient does not have burning micturition or new lower urinary tract symptoms. Urine culture negative does not show any growth. 5. DVT prophylaxis?low risk, SCDs Discharge medication reconciliation done. Discharge follow-up instructions completed. Discharge process discussed with the patient and all questions were answered to patient's satisfaction. Discharged home. Total time spent, exact 35 minutes on discharge meds reconciliation, examination, coordination of care with nurses and ancillary staff, review of imaging and blood test and discussion with the patient on follow-up instructions. Physical Exam Narrative Seen and examined on the day of the discharge. Patient afebrile. Extent of cellulitis much resolved almost 80%. No pain Physical exam General: Alert, Oriented x3, Cooperative HEENT: Atraumatic, PERRLA, EOMI, Normocephalic Oral: No Gingival or Mucosal Lesions/ Ulcerations Neck: Supple, No JVD, Negative Carotid Bruits Lungs: Air entry diminished in bilateral lung bases. No crepitation/rhonchi Cardiovascular: Regular rate, Regular Rhythm, Normal S1, Normal S2, No murmurs Abdomen: Bowel Sounds Present, Soft, Non Tender, Non-Distended : No renal angle tenderness. No suprapubic tenderness. Extremities: No edema, Capillary Refill Less than 3 Seconds Skin: Mild erythema, localized edema around anterior abdominal wall. No tenderness. Extent of cellulitis much improved. Musculoskeletal: No Tenderness to Palpation of Joints or Extremities Neurological: Cranial nerves II-XII grossly intact, DTR 2+/4 and Symmetrical, Neuro grossly intact Psych/Mental Status: Normal Affect, Appropriate. Weight / BMI Weight Weight: 197 lb 5.019 oz Body Mass Index (BMI) 25.3 ABG / Lab / Microbiology Data Result Diagrams: 07/09/21 08:25 07/09/21 08:25 Laboratory: Laboratory Results - last 24 hr 07/10/21 08:30: Vancomycin Trough 15.5 H Microbiology: Microbiology 07/09/21 08:18 Urine, Midstream Urine Culture - Preliminary Culture exhibits no growth. 07/07/21 07:15 Blood Culture (Wb) - Anticubital Right Blood Culture - Preliminary No growth in 48 hours. 07/07/21 07:00 Blood Culture (Wb) - Anticubital Left Blood Culture - Preliminary No growth in 48 hours. D/C Instructions Discharge Diet: No restrictions Weight Bearing Status: Weight bearing as tolerated Call your doctor if you observe: Fever of 101 or Higher, Coldness, Increased Pain, Numbness or Tingling, Change in Color, Inability to urinate, Inability to have a bowel movement, Shortness of breath, Dizziness, Fainting spells, Swelling in the ankles, Chest pain, Increased palpitations (irregular heartbeat), Calf discomfort and Uncontrolled pain Meaningful Use Info Meaningful Use Diagnoses (Choose all that apply): None applicable Discharge Plan Admission Admit Date/Time: 07/07/21 08:29 Primary Reason for Your Visit: Abdominal wall cellulitis Attending Provider: Jacinto Webb Primary Care Provider: Care Physician,No Primary Consulting Providers: Keke Davis Instructions Forms: Work Excuse, Work / School Excuse Discharge Orders/Prescriptions Prescriptions: New cephalexin 500 mg capsule 500 mg PO TID Qty: 15 RF: 0 sulfamethoxazole-trimethoprim [Bactrim DS] 800-160 mg tablet 1 tab PO BID Qty: 10 RF: 0 Discontinued cephalexin 500 mg capsule 500 mg BID RF: 0 Referrals / Follow Up: Care Physician,No Primary [Primary Care Provider] - Within 2 Weeks Disposition Disposition (needs filled in before D/C Order can be placed): Home, Self Care Charges/Coding Visit Charges Inpatient E&M: 95337 Disch Hosp
--- NOTE | 2021-07-10 11:11 | CASEMGMT ---
RN CM in to pt room, pt at bedside, pt states he will follow up with her PCP which is Dr. Perez. He has the phone number as per the pamphlet given. Pt denies further needs.
[2021-07-10 12:28] LABS: M R Staph aureus DNA By PCR Negative (Negative); Probe Check PASS; Specimen Processing Control PASS
== END 2021-07-10 12:10 | disposition home or self-care (01) | DRG 603 ==
LOC: ED 07:35 → MS3 09:16
PROVIDERS: Admitting Provider Internal Medicine; Emergency Provider Emergency Medicine; Visit Provider Internal Medicine
DX: L03.311 Cellulitis of abdominal wall (principal); D69.6 Thrombocytopenia, unspecified; M19.90 Unspecified osteoarthritis, unspecified site; N18.1 Chronic kidney disease, stage 1; R82.71 Bacteriuria
CPT/HCPCS: 36415; 74177; 80053; 80202; 81001; 83605; 85025; 85610; 85730; 87040; 87086; 87641; 93005; 99285; J7030; J7040; J7050; Q9967; A4216; J2405